=== PATIENT | female | born 1980 | race Caucasian/White ===

== ENCOUNTER 2025-03-06 11:42 | Emergency (ER) | payer OTHER, SELFPAY ==
[2025-03-06 11:44] VITALS: BP 111/86; PULSE 102; RESP 16; TEMP 36.5; O2SAT 99; BMI 25.4
--- NOTE | 2025-03-06 11:53 | EX.ED.DYSGE1 ---
HPI History of Present Illness Chief Complaint: Nausea/Vomiting/Diarrhea Informant: patient Onset/Context/Timing Onset: Today Context: Sudden Onset Timing: Continuous Quality: Sharp Location: Abdomen Worsened by: Nothing Relieved by: Bowel movement Narrative Narrative: Patient presents with abdominal pain, nausea, vomiting, that began this morning. Patient states her pain is sharp. Patient states it is diffuse across her abdomen. Patient states it has been constant. Patient states she did have a bowel movement which seemed to help with her pain. Patient states she started hyperventilating at home. Patient states that after that she started having some contraction of her hands. Patient states she had an ablation of her lumbar spine approximately 3 weeks ago. Patient states that today she started having some itching in the right lower lumbar area and right buttock area. Patient states her daughter was recently diagnosed with chickenpox. Patient has not noticed any rashes. Patient denies any paresthesias or weakness. [facility] Medical History (Updated 03/06/25 @ 13:[address] Ronen Nicole DO) Degenerative disc disease Chronic back pain Medical History no medical history no medical history Allergy/AdvReac Type Severity Reaction Status Date / Time No Known Allergies Allergy Verified 03/06/25 11:44 Surgical History no surgical history no surgical history Social History Smoking Status: Never smoker ROS ROS ED Constitutional Constitutional ED: Denies chills or fever(s) Eyes Eyes: Denies blurry vision or change in vision ENT ENT ED: Denies rhinorrhea or sore throat Cardiovascular Cardiovascular: Denies chest pain or palpitations Respiratory/Chest Respiratory/Chest: Denies cough or dyspnea Gastrointestinal Gastrointestinal: Reports abdominal pain, diarrhea, nausea and vomiting Genitourinary Genitourinary ED: Denies dysuria or hematuria Musculoskeletal Musculoskeletal: Reports back pain; Denies neck pain Integumentary Denies abscess or rash Neurologic Neurologic: Reports headache(s); Denies weakness Allergic/Immunologic Allergic/Immunologic ED: Denies mouth swelling or urticaria EXAM Physical Exam Const Vital Signs: 03/06/25 11:44 Temperature 97.7 F L Temperature Source Oral Pulse Rate 102 H Respiratory Rate 16 Blood Pressure 111/86 H Blood Pressure Mean 94 Pulse Ox 99 Oxygen Delivery Method Room Air Positive well nourished and well developed General Appearance ED: well developed and NAD HEENT Reports moist mucous membranes Neck supple and no JVD Resp normal respiratory effort and clear to auscultation bilaterally Cardio regular rate and regular rhythm GI non-distended Palpation: soft and tender epigastric, LLQ, RLQ, LUQ, RUQ, periumbilical and suprapubic; Negative for guarding or rebound tenderness present Neuro oriented x3, CN's II-XII intact bilaterally and no sensory deficits noted Sensorium / Orientation: alert Motor Exam: strength 5/5 throughout Psych mental status grossly normal Skin no rashes or lesions noted MDM MDM MDM Narrative Medical decision making narrative: Differential diagnosis includes viral illness, electrolyte abnormality, dehydration, urinary tract infection, lumbar radiculopathy, gastroenteritis, diverticulitis, pancreatitis, ureteral calculus, and varicella-zoster. CBC will be obtained to assess for leukocytosis and anemia. Basic metabolic profile will be obtained to assess for electrolyte abnormality and renal function. Urinalysis will be obtained to assess for urinary tract infection and hematuria. Serum hCG will be obtained to assess for . CT scan of the abdomen pelvis will be obtained to assess for ureteral calculus, pyelonephritis, colitis, and diverticulitis. Lipase will be obtained to assess for pancreatitis. Lab Data Attestation: I reviewed the patient's lab results. Lab results narrative: CBC was reviewed and was within normal limits. Comprehensive metabolic profile was reviewed and was essentially within normal limits. Lipase was reviewed and was normal at 21. Serum hCG was reviewed and was negative. Urinalysis was reviewed. There is no evidence of urinary tract infection or hematuria. Labs: Laboratory Results - last 24 hr 03/06/25 03/06/25 12:30 12:40 WBC 8.2 RBC 4.94 Hgb 15.2 H Hct 45.0 MCV 91.1 MCH 30.8 MCHC 33.8 RDW Std Deviation 40.2 RDW Coeff of Eleazar 12.1 Plt Count 311 MPV 9.5 Immature Gran % (Auto) 0.500 Neut % (Auto) 81.2 H Lymph % (Auto) 13.2 L [place] % (Auto) 4.4 Eos % (Auto) 0.5 Baso % (Auto) 0.2 Absolute Neuts (auto) 6.7 Absolute Lymphs (auto) 1.09 Nucleated RBC % 0 Sodium 137 Potassium 4.2 Chloride 100 Carbon Dioxide 25.2 Anion Gap 12 BUN 16 Creatinine 0.84 Estim Creat Clear Calc 75.88 Est GFR (MDRD) Non-Af 87 BUN/Creatinine Ratio 18.5 Glucose 97 Calcium 9.6 Total Bilirubin 1.02 AST 34 H ALT 24 Alkaline Phosphatase 61 Total Protein 7.7 Albumin 4.9 Globulin 2.8 Albumin/Globulin Ratio 1.7 Lipase 21 Serum , Qual NEGATIVE Urine Color Yellow Urine Clarity Clear Urine pH 6.0 Ur Specific [place] 1.005 Urine Protein Negative Urine Glucose (UA) Normal Urine Ketones Negative Urine Occult Blood 10 H Urine Nitrite Negative Urine Bilirubin Negative Urine Urobilinogen Normal Ur Leukocyte Esterase Negative Urine RBC 0 SEEN Urine WBC 0-5 SEEN Ur Squamous Epith Cells 0-5 SEEN Urine Bacteria 0 SEEN Urine Mucus 0 SEEN Radiography Diagnostic Testing: Clinical Impression(s) from Imaging Studies Abdomen/Pelvis CT 03/06/25 12:19 IMPRESSION: Lung bases: Mild atelectasis/scarring. 3 mm subpleural RIGHT middle lobe nodule (series 2, image 9). Liver: Unremarkable. Spleen: Granuloma. Gallbladder: Question faint high-density layering sludge. Pancreas: Unremarkable. Adrenals: Unremarkable. Kidneys: Unremarkable. Bowel: Colonic air-fluid levels suggesting malabsorption/diarrhea. No convincing inflammation. No bowel dilatation. Normal caliber appendix. Lymph nodes: Unremarkable. Vasculature: Circumaortic LEFT renal vein, normal variant. Mildly prominent LEFT ovarian vein. Peritoneum: Unremarkable. Bladder: Underdistended and suboptimally evaluated, grossly unremarkable. Reproductive Organs: Unremarkable. Body Wall: Mild rectus diastasis. Bones: Unremarkable. IMPRESSION: 1. Colonic air-fluid levels suggesting malabsorption/diarrhea. No convincing inflammation to suggest colitis. 2. 3 mm RIGHT middle lobe nodule, statistically benign and requiring no specific follow-up in a low risk patient. Otherwise, recommend follow-up CT chest in one year per the Fleischner society recommendations for pulmonary nodule follow-up, presuming no history of malignancy or known immunosuppression. 3. Additional description as above. Reading Location: [facility] CT scan of the abdomen and pelvis was obtained. There is no acute process noted. There is no evidence of bowel obstruction or perforation. There is no free air or free fluid. There is a 3 mm right middle lobe nodule that is benign. This was interpreted by the radiologist and was also independently reviewed by myself. Treatment and Re-Evaluation :: Patient was given IV fluids. Patient was advised of her findings. Patient is feeling better on reevaluation. Patient was instructed to follow-up with her primary care physician in 5 to 7 days. Patient was instructed to return if worse in any way. Patient understood and was agreeable with the plan. All questions were answered. Discharge Plan Triage Chief Complaint: Nausea/Vomiting/Diarrhea ED Provider: Ronen Nicole Dx/Rx/DC Orders Clinical Impression: Nausea, vomiting, and diarrhea, Hyperventilation Instructions: ED Diarrhea, Unknown Cause, ED Vomiting (Adult) Primary Care Provider: Jose Johnson Referrals: Jose Johnson DO [Primary Care Provider] - 5-7 Days Print Language: Finnish Disposition Disposition: Home, Self Care
--- NOTE | 2025-03-06 12:19 | CT_ITS ---
PROCEDURE: ABDOMEN/PELVIS W IV CONT ONLY 03/06/2025 REASON FOR EXAM: ABDOMINAL PAIN TECHNIQUE: CT abdomen and pelvis was performed with IV contrast. Multiplanar reformats were generated. PATIENT PREPARATION: Per protocol ORAL CONTRAST TYPE: None. CONTRAST: Isovue-300 VOLUME: 87 mL One or more dose reduction techniques were used (e.g., Automated exposure control, adjustment of the mA and/or kV according to patient size, use of iterative reconstruction technique. RADIATION DOSE SUMMARY: CTDlvol: 9.11+ 7.53 mGy DLP: 372.31 mGycm COMPARISON: None CT/Abdomen/Pelvis W IV Cont ONLY IMPRESSION: Lung bases: Mild atelectasis/scarring. 3 mm subpleural RIGHT middle lobe nodul e (series 2, image 9). Liver: Unremarkable. Spleen: Granuloma. Gallbladder: Question faint high-density layering sludge. Pancreas: Unremarkable. Adrenals: Unremarkable. Kidneys: Unremarkable. Bowel: Colonic air-fluid levels suggesting malabsorption/diarrhea. No convinci ng inflammation. No bowel dilatation. Normal caliber appendix. Lymph nodes: Unremarkable. Vasculature: Circumaortic LEFT renal vein, normal variant. Mildly prominent LE FT ovarian vein. Peritoneum: Unremarkable. Bladder: Underdistended and suboptimally evaluated, grossly unremarkable. Reproductive Organs: Unremarkable. Body Wall: Mild rectus diastasis. Bones: Unremarkable. IMPRESSION: 1. Colonic air-fluid levels suggesting malabsorption/diarrhea. No convincing i nflammation to suggest colitis. 2. 3 mm RIGHT middle lobe nodule, statistically benign and requiring no specifi c follow-up in a low risk patient. Otherwise, recommend follow-up CT chest in one year per the Fleischner society recommendat ions for pulmonary nodule follow-up, presuming no history of malignancy or known immunosuppression. 3. Additional description as above. Reading Location: [id number]
[2025-03-06] MEDS: 0.9% Normal Saline (1000mL) 1,000 ML 1000 ML IV (12:35)
[2025-03-06 12:45] LABS: Bacteria 0 SEEN /hpf (None Seen); Mucous, Urine 0 SEEN /hpf (<or=2+); Red Blood Cells-Urine 0 SEEN /hpf (0-5)
[2025-03-06 12:52] LABS: Absolute Lymphocyte Count 1.09 X10^3/uL (0.83-4.51); Absolute Neutrophil Count 6.7 X10^3/uL (2.0-7.7); Basophil# 0.02 X10^3/uL; Basophil% 0.2 % (0-1); Eosinophil# 0.04 X10^3/uL; Eosinophils% 0.5 % (0-5); Hemoglobin 15.2 g/dL (12.0-15.0); Lymphocyte # 1.09 X10^3/ul (0.83-4.51); Lymphocyte % 13.2 % (19-41); Mean Corp Hgb Conc 33.8 g/dL (32-36); Mean Corpuscular Hgb 30.8 pg (27.0-32.0); Mean Corpuscular Volume 91.1 fL (81-99); Mean Platelet Vol. 9.5 fl (6.2-12.0); Monocyte# 0.36 X10^3/uL; Monocyte% 4.4 % (0-10); NRBC Flagged by Analyzer 0 % (0-5); Neutrophil # 6.69 X10^3/uL (2.7-7.7); Neutrophil % 81.2 % (47-70); Platelet Count 311 K/mm3 (150-450); RBC Distribution Width CV 12.1 % (11.6-14.6); RBC Distribution Width SD 40.2 fl (35.1-43.9); Red Blood Count 4.94 M/mm3 (4.2-5.4); White Blood Count 8.2 K/mm3 (4.4-11.0)
[2025-03-06 12:56] LABS: Color, Urine Yellow (Yellow); Glucose, Dipstick Normal (Normal); Ketone-Dipstick Negative (Negative); Leukocyte Esterase-Dipstick Negative /ul (Negative); Nitrite-Dipstick Negative (Negative); Occult Blood-Urine 10 /ul (Negative); Protein-Dipstick Negative (Negative); Specific Gravity, Urine 1.005 (1.002-1.030); Urine Bilirubin Dipstick Negative (Negative); Urine Clarity Clear (Clear); Urine Urobilinogen Normal (Normal)
[2025-03-06 12:57] LABS: Internal QC Validated? YES +Cl - CLEAR BKGD; Pregnancy, Serum, hCG Quali. NEGATIVE Negative; Record Kit Lot#, Serum Preg. 899023
[2025-03-06 13:03] LABS: Squamous Epithelial Cells - UA 0-5 SEEN /hpf (5-10); White Blood Cells 0-5 SEEN /hpf (0-5)
[2025-03-06 13:12] LABS: ALB/GLOB Ratio 1.7 RATIO (0.9-2.4); AST(SGOT) 34 U/L (<=31); Alanine Aminotransfer ALT/SGPT 24 U/L (<=34); Albumin, Serum 4.9 g/dL (3.5-5.0); Alkaline Phosphatase 61 U/L (35-104); Anion Gap 12 (5-15); BUN 16 mg/dL (4-19); BUN/Creat Ratio 18.5 RATIO (10-20); Calcium,Total 9.6 mg/dL (7.6-11.0); Carbon Dioxide 25.2 mmol/L (21.0-32.0); Chloride 100 mmol/L (98-108); Creatinine, Serum 0.84 mg/dL (0.70-1.20); EST Glomerular Filtration Rate 87 (>60); Estimated Creatinine Clearance 75.88 ml/min (50-250); Globulin 2.8 g/dL (2.2-4.2); Glucose 97 mg/dL (70-99); Lipase 21 U/L (13-75); Potassium 4.2 mmol/L (3.3-5.1); Protein, Total 7.7 g/dL (5.9-8.4); Sodium Level 137 mmol/L (133-145); Total Bilirubin 1.02 mg/dL (0.00-1.30)
[2025-03-06 13:41] VITALS: BP 124/74; PULSE 71; RESP 14; TEMP 36.8; O2SAT 99
== END 2025-03-06 14:02 | disposition home or self-care (01) ==
PROVIDERS: Emergency Provider Emergency Medicine; PCP Student in an Organized Health Care Education/Training Program; Visit Provider Emergency Medicine
DX: R11.2 Nausea with vomiting, unspecified (principal); R19.7 Diarrhea, unspecified; R06.4 Hyperventilation
CPT/HCPCS: 74177; 80053; 81001; 83690; 84703; 85025; 96360; 99283